=== PATIENT | female | born 1965 | race Caucasian/White ===

== ENCOUNTER 2017-07-21 14:52 | Outpatient (CLI) | payer MEDICAID ==
--- NOTE | 2017-07-22 16:10 | XRAY Report ---
Procedure Date: 07/22/2017 Accession Number: [id number] / [id number] Procedure: XRS - Lumbar Spine 2 View CPT Code: FULL RESULT: EXAM: LUMBOSACRAL SPINE RADIOGRAPHY EXAM DATE: 07/21/2017 03:19 PM. CLINICAL HISTORY: ACUTE SCIATICA. COMPARISONS: Sacrum and coccyx the same day. TECHNIQUE: 3 views. FINDINGS: Alignment: Minimal left convex upper lumbar scoliosis. No subluxation. Bones: Five [id number] lumbar vertebral bodies are present. No fractures or bone lesions. Disks: Disk heights are maintained. There is minimal anterior endplate osteophyte formation L1-L2 through L4-L5. Facets: No degenerative changes. Sacroiliac Joints: Unremarkable. Soft Tissues: Normal. The visualized bowel gas pattern is normal. IMPRESSION: Minimal degenerative disk disease L1-L2 through L4-L5. [facility]
--- NOTE | 2017-07-22 16:10 | XRAY Report ---
Procedure Date: 07/22/2017 Accession Number: [id number] / [id number] Procedure: XRS - Sacrum/Coccyx CPT Code: FULL RESULT: EXAM: SACRUM AND COCCYX RADIOGRAPHY EXAM DATE: 07/21/2017 03:18 PM. HISTORY: ACUTE SCIATICA. COMPARISONS: Lumbar spine the same day. TECHNIQUE: 3 views. FINDINGS: Alignment: Normal. The sacrum and coccyx are normally aligned. Bones: Normal. No fracture or bone lesion. Joints: Normal. The sacroiliac joints and visualized hips are within normal limits. Soft Tissues: Unremarkable. IMPRESSION: Normal sacrum and coccyx radiography. [facility]
== END 2017-07-21 14:53 | disposition home or self-care (01) ==
LOC: DI.S 14:52
PROVIDERS: ATTEND Nurse Practitioner Family
DX: M51.36 Other intervertebral disc degeneration, lumbar region (principal)
CPT/HCPCS: 72100; 72220